=== PATIENT | male | born 1960 | race Hispanic/Latino ===

== ENCOUNTER 2021-09-01 13:10 | Emergency (ER) | payer OTHER ==
[2021-09-01] MEDS ORDERED: TETANUS,DIPH,PERTUSS(ACELL) VACCINE 0.5 ML SYRINGE IM ONE (13:48)
--- NOTE | 2021-09-01 13:55 | Emergency Department Report ---
ED Head Trauma HPI - General Chief complaint: Wound/Laceration Stated complaint: GASH ON HEAD Time Seen by Provider: 09/01/21 13:15 Source: patient Mode of arrival: Ambulatory Limitations: No Limitations - History of Present Illness Initial comments: Patient is a 61-year-old male presents emergency room complaints of a laceration to the scalp that occurred just prior to arrival. Patient states he was working on putting up a metal door when it partially fell down and hit him in the head. He states he noticed bleeding immediately. He states it improved after he placed gauze. He denies any loss of consciousness, vomiting, vision changes, numbness, weakness, bowel or bladder incontinence,any other injury. He denies being on any blood thinners. Past medical history of hypertension. No allergies to medications. - Related Data Allergies/Adverse reactions: Allergies Allergy/AdvReac Type Severity Reaction Status Date / Time No Known Allergies Allergy Verified 09/01/21 13:15 ED Review of Systems ROS: Stated complaint: GASH ON HEAD Other details as noted in HPI Comment: All other systems reviewed and negative ED Physical Exam - General Limitations: No Limitations General appearance: alert, in no apparent distress - Head Head exam: Present: other (1 cm laceration present to the frontal scalp, superficial, no muscle involvement, no hematoma, no skull bony ttp) - Eye Eye exam: Present: normal appearance, PERRL, EOMI. Absent: periorbital swelling, periorbital tenderness - ENT ENT exam: Present: mucous membranes moist - Neurological Exam Neurological exam: Present: alert, oriented X3 - Psychiatric Psychiatric exam: Present: normal affect, normal mood - Skin Skin exam: Present: warm, dry - Laceration /Wound Repair Head Wound Location: head (frontal scalp) Wound Length (cm): 1 Wound's Depth, Shape: superficial Wound Explored: clean Irrigated w/ Saline (ccs): 20 Betadine Prep?: No Wound Debrided: moderate Number of Sutures: 2 (so) Layer Closure?: No Sterile Dressing Applied?: Yes Progress: Verbal consent obtained by patient Wound irrigated with saline and thoroughly scrubbed with Betadine, sterile drapes applied, sterile gloves worn, 2 so placed, patient tolerated well, no complications, bleeding controlled, dressing applied - Medical Decision Making Patient is a 61-year-old male presents emergency room complaints of a laceration to the scalp that occurred just prior to arrival. Patient states he was working on putting up a metal door when it partially fell down and hit him in the head. He states he noticed bleeding immediately. He states it improved after he placed gauze. He denies any loss of consciousness, vomiting, vision changes, numbness, weakness, bowel or bladder incontinence,any other injury. He denies being on any blood thinners. Past medical history of hypertension. No allergies to medications. Vitals written on paper by triage nurse are stable, advised nurse to record on patient's chart. On exam: 1 cm laceration present to the frontal scalp, superficial, no muscle involvement, no hematoma, no skull bony ttp, no focal neuro deficit, ambulatory without difficulty. [place] CT head rules zero, CT head imaging as documented. Laceration repaired per procedure note without any complications. ordered tdap for patient but was advised by combining machine operator he refused tdap, he was made aware of risks. Advised p atient May take Tylenol or ibuprofen as needed for any discomfort. [place] will need to be removed in 5 to 7 days. Follow-up with your primary care doctor for reexamination. Return to emergency room immediately for any new or worsening symptoms. Critical care attestation.: If time is entered above; I have spent that time in minutes in the direct care of this critically ill patient, excluding procedure time. ED Disposition Clinical Impression: Scalp laceration Qualifiers: Encounter type: initial encounter Qualified Code(s): S01.01XA - Laceration without foreign body of scalp, initial encounter Head injury Qualifiers: Encounter type: initial encounter Qualified Code(s): S09.90XA - Unspecified injury of head, initial encounter Disposition: HOME / SELF CARE / HOMELESS Is pt being admited?: No Does the pt Need Aspirin: No Condition: Stable Instructions: Sutures, [place], or Adhesive Wound Closure, [id number] Additional Instructions: May take Tylenol or ibuprofen as needed for any discomfort. [place] will need to be removed in 5 to 7 days. Follow-up with your primary care doctor for reexamination. Return to emergency room immediately for any new or worsening symptoms. Referrals: your, primary care doctor [Other] - 2-3 Days Time of Disposition: 13:56 Print Language: SERBIAN
== END 2021-09-01 14:20 | disposition home or self-care (01) ==
LOC: ED 13:10
DX: S01.01XA Laceration without foreign body of scalp, initial encounter (principal); W22.8XXA Striking against or struck by other objects, initial encounter; Y93.89 Activity, other specified; Y92.89 Other specified places as the place of occurrence of the external cause; Y99.8 Other external cause status